=== PATIENT | female | born 1950 | race African-American/Black ===

== ENCOUNTER 2018-04-20 15:49 | Emergency (ER) | payer MEDICARE, MEDICAID ==
[~2018-04-20] VITALS: Ht 149.9 cm; Wt 99.1 kg
[2018-04-20 16:02] VITALS: TEMP 98.9
[2018-04-20] MEDS ORDERED: HCTZ 25MG TAB25 MG PO (17:17)
[2018-04-20] MEDS ORDERED: NORVASC 10MG10 MG PO (17:17)
[2018-04-20] MEDS ORDERED: ZESTRIL 10MG10 MG PO (17:17)
[2018-04-20 18:01] LABS: COLLECTION METHOD CLEAN CATCH
[2018-04-20 18:14] LABS: MUCOUS Present /lpf; PH 5 (5-8); URINE APPEARANCE Clear; URINE BACTERIA Rare /hpf; URINE BILIRUBIN Negative (NEGATIVE); URINE BLOOD Negative (NEGATIVE); URINE COLOR Yellow; URINE GLUCOSE Negative (NEGATIVE); URINE KETONE Negative (NEGATIVE); URINE LEUKOCYTE ESTERASE Negative (NEGATIVE); URINE NITRATE Negative (NEGATIVE); URINE PROTEIN(semi-quant) 1+ (NEGATIVE); URINE RBC 0-2 /hpf; URINE UROBILINOGEN Negative (NEGATIVE)
[2018-04-20 18:24] LABS: BASO # 0.1 (0.0-0.2); BASO % 0.9 % (0.0-2.0); EOS # 0.1 (0.0-0.7); EOS % 1.6 % (0-4.0); GRAN # 3.4 (1.4-6.5); HEMATOCRIT 41.9 % (37.0-47.0); LYMPH # 2.9 (1.2-3.4); LYMPH % 40.8 % (20.0-51.0); MEAN CELL VOLUME 89 fl (80.0-100.0); MEAN CORPUSCULAR HEMOGLOBIN 30 pg (27.0-31.0); MEAN CORPUSCULAR HGB CONC 33 g/dl (33.0-37.0); MEAN PLATELET VOLUME 11.1 fl (7.4-10.4); MONO # 0.5 (0.1-0.6); MONO % 7.4 % (1.7-9.3); PLATELET COUNT 198 K/mm3 (130-400); RED BLOOD COUNT 4.72 M/mm3 (4.10-5.30)
[2018-04-20 18:33] LABS: ALANINE AMINOTRANSFERASE 20 U/L (9-52); ALKALINE PHOSPHATASE 93 U/L (50-136); ANION GAP 10 mmol/L (7-16); AST,SGOT 19 U/L (15-37); BILIRUBIN,TOTAL 0.3 mg/dL (0.0-1.0); BLOOD UREA NITROGEN 18 mg/dL (7-17); C-REACTIVE PROTEIN 1.4 mg/dL (0.0-0.9); CALCIUM 9.4 mg/dL (8.4-10.2); CARBON DIOXIDE 27 mmol/L (22-30); CHLORIDE 103 mmol/L (98-107); CREATININE, serum 0.82 mg/dL (0.52-1.25); GLUCOSE 89 mg/dL (74-106); LIPASE 107 U/L (23-300); POTASSIUM 3.8 mmol/L (3.4-5.0); SODIUM 140 mmol/L (137-145); TOTAL PROTEIN 7.8 gm/dL (6.4-8.2)
[2018-04-20 18:42] LABS: TROPONIN-I < 0.012 ng/mL (0.000-0.034)
[2018-04-20] MEDS ORDERED: CEPHALEXIN500 M1 PO (19:48)
[2018-04-20] MEDS ORDERED: NORCO 325 MG-51 TAB PO (19:48)
[2018-04-20 20:25] VITALS: BP 154/75; PULSE 70
== END 2018-04-20 20:25 | disposition home or self-care (01) ==
LOC: COL.ER 15:49
PROVIDERS: Emergency Medicine
DX: M54.5 Low back pain (principal); I10 Essential (primary) hypertension; Z98.890 Other specified postprocedural states
CPT/HCPCS: J1170; J2405; J7030; Q9967